=== PATIENT | female | born 1955 | race Caucasian/White ===

== ENCOUNTER 2017-07-14 22:13 | Emergency (ER) | payer OTHER, MEDICARE ==
[~2017-07-14] VITALS: Ht 154.9 cm; Wt 54.4 kg
[2017-07-14 23:11] LABS: Basophils # (auto) 0 uL; Basophils % (auto) 0.8 % (0.0-2.0); Eosinophils # (auto) 0 uL; Eosinophils % (auto) 0.2 % (0.0-7.0); Hematocrit 31.7 % (36.0-46.0); Hemoglobin 10.8 g/dL (12.2-16.2); Lymphocytes # (auto) 0.4 uL; Lymphocytes % (auto) 12.9 % (10.0-50.0); Mean Corpuscular Hemoglobin 28.6 pg (28.0-32.0); Mean Corpuscular Hgb Conc. 34.1 g/dL (32.0-36.0); Monocytes # (auto) 0.4 uL; Monocytes % (auto) 15.9 % (0.0-12.0); Neutrophils # (auto) 1.9 uL; Neutrophils % (auto) 70.2 % (37.0-80.0); Platelet Count (auto) 197 10^3/uL (140-450); Red Blood Cells 3.77 10^6/uL (4.0-5.20); Red Cell Distribution Width 13.5 % (11.8-14.3); White Blood Cell 2.7 10^3/uL (4.4-10.8)
[2017-07-14 23:33] LABS: Alanine Aminotransferase 87 U/L (13-56); Albumin 3.2 g/dL (3.4-5.0); Anion Gap 7 (5-15); Aspartate Aminotransferase 143 U/L (15-37); BUN/Creatinine Ratio 16.1; Blood Urea Nitrogen 20 mg/dL (7-18); Calcium 8.1 mg/dL (8.5-10.1); Carbon Dioxide 25 mmol/L (21-32); Chloride 102 mmol/L (98-107); GFR African American 56 mL/min; GFR Non-African American 46 mL/min; Glucose 108 mg/dL (74-106); Sodium 134 mmol/L (136-145)
[2017-07-14 23:37] LABS: Alkaline Phosphatase 103 U/L (45-117); Bilirubin, Total 0.4 mg/dL (0.2-1.0); Total Protein 6.3 g/dL (6.4-8.2)
[2017-07-15 05:00] VITALS: BP 118/72
== END 2017-07-15 05:40 | disposition home or self-care (01) ==
LOC: ER 22:13 → EDBD 22:13 → ER 07-15 05:40
DX: J06.9 Acute upper respiratory infection, unspecified (principal); R51 Headache; R42 Dizziness and giddiness; I10 Essential (primary) hypertension; Z90.49 Acquired absence of other specified parts of digestive tract; Z85.841 Personal history of malignant neoplasm of brain
CPT/HCPCS: 36415; 70450; 71045; 80053; 83880; 84484; 85025; 87400; 93005; 94761

== ENCOUNTER 2022-08-18 16:31 | Inpatient (IN) | payer OTHER ==
[~2022-08-18] VITALS: Ht 154.9 cm; Wt 50.6 kg
[2022-08-18 18:27] LABS: Albumin 4.6 g/dL (3.4-5.0); Calcium 10.3 mg/dL (8.5-10.1)
[2022-08-18 18:29] LABS: BUN/Creatinine Ratio 12.9
[2022-08-18 18:32] LABS: Bilirubin, Total 0.6 mg/dL (0.2-1.0); Total Protein 8.7 g/dL (6.4-8.2)
[2022-08-18 18:52] LABS: Basophils # (auto) 0 10 ^3/uL (0-0.2); Basophils % (auto) 0.3 % (0.0-2.0); Eosinophils # (auto) 0 10 ^3/uL (0-0.8); Hematocrit 42.1 % (36.0-46.0); Hemoglobin 14.3 g/dL (12.2-16.2); Lymphocytes # (auto) 0.6 10 ^3/uL (0.4-5.4); Mean Corpuscular Hemoglobin 29.1 pg (28.0-32.0); Mean Corpuscular Hgb Conc. 33.9 g/dL (32.0-36.0); Monocytes # (auto) 0.4 10 ^3/uL (0-1.3); Monocytes % (auto) 3.7 % (0.0-12.0); Neutrophils # (auto) 10.1 10 ^3/uL (1.6-8.6); Nucleated Red Blood Cells % 0.1 %; Red Cell Distribution Width 14.1 % (11.8-14.3); White Blood Cell 11.1 10^3/uL (4.4-10.8)
[2022-08-18 18:57] LABS: Urine Bacteria NONE SEEN /hpf (None Seen); Urine Blood Negative /uL (Negative); Urine Budding Yeast MANY /hpf (None Seen); Urine Hyaline Cast FEW /lpf (0 - 2); Urine Mucus FEW (None Seen); Urine Specific Gravity 1.013 (1.001-1.035); Urine WBC <1 /hpf (0 - 5)
[2022-08-18 19:25] LABS: Lactic Acid w/Reflex 2.2 mmol/L (0.4-2.0)
[2022-08-18 19:43] LABS: Potassium 5.6 mmol/L (3.5-5.1)
[2022-08-18] MEDS ORDERED: SODIUM CHLORIDE 0.9% 500 ML IV ONE ×2 (20:00→21:45)
[2022-08-18] MEDS ORDERED: PANTOPRAZOLE 40 MG/10 ML VIAL INJ IV ONE (20:00)
[2022-08-18] MEDS ORDERED: ONDANSETRON HCL 4 MG/2 ML VIAL IV ONE (20:00)
[2022-08-18 22:49] LABS: Hematocrit 42.5 % (36.0-46.0); Hemoglobin 13.9 g/dL (12.2-16.2)
[2022-08-19] MEDS: SODIUM CHLORIDE 0.9% 1,000 ML IV SCH ×2 (04:30→11:05)
[2022-08-19 05:20] LABS: Basophils # (auto) 0 10 ^3/uL (0-0.2); Eosinophils # (auto) 0 10 ^3/uL (0-0.8); Hematocrit 41.6 % (36.0-46.0); Hemoglobin 13.3 g/dL (12.2-16.2); Lymphocytes # (auto) 0.7 10 ^3/uL (0.4-5.4); Lymphocytes % (auto) 6.5 % (10.0-50.0); Mean Corpuscular Hgb Conc. 32.1 g/dL (32.0-36.0); Mean Corpuscular Volume 90.3 fL (80.0-100.0); Monocytes # (auto) 0.6 10 ^3/uL (0-1.3); Monocytes % (auto) 6.1 % (0.0-12.0); Neutrophils % (auto) 87.4 % (37.0-80.0); Nucleated Red Blood Cells % 0.1 %; White Blood Cell 10.3 10^3/uL (4.4-10.8)
[2022-08-19 05:40] LABS: Albumin 3.5 g/dL (3.4-5.0); Calcium 8.9 mg/dL (8.5-10.1); Potassium 3.7 mmol/L (3.5-5.1)
[2022-08-19 05:42] LABS: BUN/Creatinine Ratio 18.7
[2022-08-19 05:44] LABS: Bilirubin, Total 0.6 mg/dL (0.2-1.0); Total Protein 7.4 g/dL (6.4-8.2)
[2022-08-19] MEDS ORDERED: PANTOPRAZOLE 40 MG/10 ML VIAL INJ IV SCH (10:00)
[2022-08-19] MEDS: cefTRIAXone 1GM/50ML D5W 50 ML IV SCH (10:20)
[2022-08-19] MEDS: ONDANSETRON HCL 4 MG/2 ML VIAL IV PRN (14:08)
[2022-08-19 15:45] VITALS: BP 145/90
[2022-08-19 17:08] VITALS: BP 145/90
[2022-08-19 20:00] VITALS: BP 145/85
[2022-08-19] MEDS ORDERED: LEVO25TA6 PO (20:52)
[2022-08-19] MEDS ORDERED: BUSP5TAB51 PO (20:53)
[2022-08-19] MEDS ORDERED: PARO30TA99 PO (20:55)
[2022-08-19] MEDS: PANTOPRAZOLE 40 MG/10 ML VIAL INJ IV SCH (21:25)
[2022-08-19 22:00] VITALS: BP 158/87
[2022-08-19 22:20] VITALS: BP 145/85
[2022-08-20] MEDS: SODIUM CHLORIDE 0.9% 1,000 ML IV SCH ×2 (00:35→14:39)
[2022-08-20 05:00] VITALS: BP 162/89
[2022-08-20 05:37] LABS: Basophils # (auto) 0 10 ^3/uL (0-0.2); Basophils % (auto) 0.5 % (0.0-2.0); Eosinophils # (auto) 0 10 ^3/uL (0-0.8); Eosinophils % (auto) 0.3 % (0.0-7.0); Hematocrit 37.6 % (36.0-46.0); Hemoglobin 12.6 g/dL (12.2-16.2); Lymphocytes # (auto) 0.9 10 ^3/uL (0.4-5.4); Mean Corpuscular Hemoglobin 29.2 pg (28.0-32.0); Mean Corpuscular Hgb Conc. 33.5 g/dL (32.0-36.0); Mean Corpuscular Volume 87.3 fL (80.0-100.0); Monocytes # (auto) 0.6 10 ^3/uL (0-1.3); Monocytes % (auto) 7.2 % (0.0-12.0); Neutrophils # (auto) 6.3 10 ^3/uL (1.6-8.6); Nucleated Red Blood Cells % 0.1 %; Red Cell Distribution Width 14.4 % (11.8-14.3); White Blood Cell 7.8 10^3/uL (4.4-10.8)
[2022-08-20 05:52] LABS: Calcium 9.3 mg/dL (8.5-10.1)
[2022-08-20 05:56] LABS: BUN/Creatinine Ratio 21.9
[2022-08-20 06:09] LABS: Partial Thromboplastin Time 26.8 sec (24.6-33.4)
[2022-08-20 09:00] VITALS: BP 161/98
[2022-08-20] MEDS: PANTOPRAZOLE 40 MG/10 ML VIAL INJ IV SCH ×2 (09:29→21:00)
[2022-08-20] MEDS: cefTRIAXone 1GM/50ML D5W 50 ML IV SCH (09:29)
[2022-08-20] MEDS: ONDANSETRON HCL 4 MG/2 ML VIAL IV PRN ×2 (09:29→17:47)
[2022-08-20] MEDS ORDERED: diphenhdrAMINE HCL 50 MG/1 ML VL ONE (09:55)
[2022-08-20] MEDS ORDERED: LIDOCAINE VISCOUS 2% 15ML UD ONE (09:55)
[2022-08-20] MEDS ORDERED: MIDAZOLAM HCL 2MG/2ML 2ml VIAL (1mg/ml) ONE (09:55)
[2022-08-20] MEDS: fentaNYL CITRATE 100 MCG/2 ML VL ONE ×2 (11:14→11:17)
[2022-08-20 12:10] VITALS: BP 145/78
[2022-08-20] MEDS: SUCRALFATE 1 GM/10 ML ORAL SUSP PO SCH ×3 (14:39→21:00)
[2022-08-20 16:00] VITALS: BP 173/98
[2022-08-20] MEDS ORDERED: hydrALAZINE HCL 20 MG/ML VL IV PRN (17:30)
[2022-08-20] MEDS ORDERED: busPIRone HCL 10 MG TAB PO PRN (17:45)
[2022-08-20 22:00] VITALS: BP 135/78
[2022-08-21 05:00] VITALS: BP 122/75
[2022-08-21] MEDS: SUCRALFATE 1 GM/10 ML ORAL SUSP PO SCH ×2 (06:58→10:48)
[2022-08-21] MEDS ORDERED: LEVOTHYROXINE SODIUM 25 MCG TAB PO SCH (07:00)
[2022-08-21] MEDS: cefTRIAXone 1GM/50ML D5W 50 ML IV SCH (08:21)
[2022-08-21 09:00] VITALS: BP 149/83
[2022-08-21] MEDS ORDERED: LISI20TA28 PO (09:27)
[2022-08-21] MEDS ORDERED: PANT40T PO (09:27)
[2022-08-21] MEDS ORDERED: SUCR1SUS10 PO (09:27)
[2022-08-21] MEDS ORDERED: PARoxetine 20 MG TAB PO SCH (10:00)
[2022-08-21] MEDS: PANTOPRAZOLE 40 MG/10 ML VIAL INJ IV SCH (10:48)
[2022-08-21 13:00] VITALS: BP 137/85
[2022-08-23 14:33] LABS: Hepatitis C Antibody Negative (Negative)
== END 2022-08-21 15:50 | disposition home health service (06) | DRG 378 ==
LOC: ER 16:31 → OVERFLOW 21:49 → CENTRAL 08-19 15:46
PROVIDERS: ADMIT Nurse Practitioner; ATTEND Internal Medicine Geriatric Medicine
PROC: 0DB68ZX Excision of Stomach, Via Natural or Artificial Opening Endoscopic, Diagnostic (ICD-10-PCS; 2022-08-20)
PROC: 0DB48ZX Excision of Esophagogastric Junction, Via Natural or Artificial Opening Endoscopic, Diagnostic (ICD-10-PCS; 2022-08-20)
PROC: 0DB98ZX Excision of Duodenum, Via Natural or Artificial Opening Endoscopic, Diagnostic (ICD-10-PCS; principal; 2022-08-20 10:52)
DX: K29.01 Acute gastritis with bleeding (principal); C74.90 Malignant neoplasm of unspecified part of unspecified adrenal gland; N17.9 Acute kidney failure, unspecified; K29.81 Duodenitis with bleeding; I10 Essential (primary) hypertension; E86.0 Dehydration; C30.0 Malignant neoplasm of nasal cavity; E87.8 Other disorders of electrolyte and fluid balance, not elsewhere classified; Z20.822 Contact with and (suspected) exposure to COVID-19; K44.9 Diaphragmatic hernia without obstruction or gangrene; Z85.858 Personal history of malignant neoplasm of other endocrine glands; Z90.49 Acquired absence of other specified parts of digestive tract; Z92.21 Personal history of antineoplastic chemotherapy
CPT/HCPCS: 36415; 43239; 70450; 71045; 74176; 80048; 80053; 81001; 83605; 83690; 84132; 85014; 85018; 85025; 85610; 85730; 86803; 86850; 86900; 86901; 87340; 87426; 93005; 96361; 96365; 96375; 96376; C9113; G0378; J0696; J2250; J2405

== ENCOUNTER 2023-05-05 19:39 | Inpatient (IN) | payer OTHER ==
[~2023-05-05] VITALS: Ht 152.4 cm; Wt 47.5 kg
[~2023-05-05 19:39] MED LIST: BUSP5TAB51 PO; LEVO25TA6 PO; LISI20TA56 PO; PANT40T PO; PARO30TA99 PO; SUCR1SUS26 PO
[2023-05-05 20:30] VITALS: PULSE 79; RESP 16; O2SAT 94
[2023-05-05] MEDS ORDERED: SODIUM CHLORIDE 0.9% 1,000 ML IVB ONE (21:00)
[2023-05-05] MEDS ORDERED: HYDROmorphone HCL 2 MG/ML VL/or syr IV ONE (21:00)
[2023-05-05] MEDS ORDERED: ONDANSETRON HCL 4 MG/2 ML VIAL IV ONE (21:00)
[2023-05-05] MEDS ORDERED: ACETAMINOPHEN 325 MG TAB PO ONE (21:00)
[2023-05-05] MEDS ORDERED: PANTOPRAZOLE 40 MG/10 ML VIAL INJ IV ONE (21:00)
[2023-05-05 22:07] LABS: Basophils # (auto) 0 10 ^3/uL (0-0.2); Basophils % (auto) 0.5 % (0.0-2.0); Eosinophils # (auto) 0 10 ^3/uL (0-0.8); Eosinophils % (auto) 0.5 % (0.0-7.0); Hemoglobin 12.3 g/dL (12.2-16.2); Lymphocytes # (auto) 0.8 10 ^3/uL (0.4-5.4); Lymphocytes % (auto) 8.2 % (10.0-50.0); Mean Corpuscular Hemoglobin 28.4 pg (28.0-32.0); Mean Corpuscular Hgb Conc. 33.1 g/dL (32.0-36.0); Mean Corpuscular Volume 85.8 fL (80.0-100.0); Monocytes # (auto) 0.5 10 ^3/uL (0-1.3); Neutrophils # (auto) 8.5 10 ^3/uL (1.6-8.6); Neutrophils % (auto) 85.8 % (37.0-80.0); Red Blood Cells 4.31 10^6/uL (4.0-5.20); Red Cell Distribution Width 14.3 % (11.8-14.3); White Blood Cell 9.9 10^3/uL (4.4-10.8)
[2023-05-05 22:25] LABS: INR 1.02 (0.9-1.15); Partial Thromboplastin Time 22.2 SEC (24.5-34.5); Prothrombin Time 10.7 sec (9.3-11.8)
[2023-05-05] MEDS ORDERED: ETOMIDATE (2MG/ML) 20ML VIAL IV ONE (22:30)
[2023-05-05 22:40] LABS: Alanine Aminotransferase 11 U/L (7-40); Albumin 4.4 g/dL (3.2-4.8); Alkaline Phosphatase 58 U/L (46-116); Anion Gap 8 (5-15); Aspartate Aminotransferase 18 U/L (13-40); Blood Alcohol 4.9 mg/dL (<10); Blood Urea Nitrogen 13 mg/dL (9-23); CRP High Sensitivity 0.05 mg/dL (<1.0); Calcium 9.6 mg/dL (8.5-10.1); Carbon Dioxide 27 mmol/L (20-30); Chloride 103 mmol/L (98-107); Creatine Kinase IFCC 50 U/L (34-145); Glucose 116 mg/dL (74-106); Lactic Acid w/Reflex 2.2 mmol/L (0.4-2.0); Potassium 4.4 mmol/L (3.5-5.1); Sodium 138 mmol/L (136-145)
[2023-05-05 22:41] LABS: Bilirubin, Total 0.2 mg/dL (0.2-1.0)
[2023-05-05 22:51] LABS: Erythrocyte Sedimentation Rate 18 mm/hr (0-20)
[2023-05-05 22:54] LABS: Lipase 82 U/L (12-53); Magnesium 1.9 mg/dL (1.6-2.6)
[2023-05-05 23:55] LABS: Urine Bacteria NONE SEEN /hpf (None Seen); Urine Blood Negative /uL (Negative); Urine Clarity Clear (Clear); Urine Protein, UAD Negative (Negative); Urine Specific Gravity 1.009 (1.001-1.035); Urine Urobilinogen Normal (Negative); Urine WBC 4 /hpf (0 - 5)
[2023-05-05 23:59] LABS: Amphetamine Screen, Urine Neg (NEGATIVE); Barbiturate Scree,Urine Neg (NEGATIVE); Benzodiazephine Screen, Urine Neg (NEGATIVE); Cannabinoid Screen, Urine Neg (NEGATIVE); Cocaine Screen, Urine Neg (NEGATIVE); Opiate Scree,Urine Neg (NEGATIVE); Phencyclidine Screen, Urine Neg (NEGATIVE)
[2023-05-06] LABS: Urine Color Straw (Yellow)
[2023-05-06] MEDS ORDERED: LIDOCAINE W/ EPINEPHRINE 1% 20ML VIAL ONE (00:45)
[2023-05-06] MEDS ORDERED: ONDANSETRON HCL 4 MG/2 ML VIAL IV ONE (01:30)
[2023-05-06] MEDS ORDERED: MIDAZOLAM HCL 2MG/2ML 2ml VIAL (1mg/ml) IV ONE ×2 (01:30)
[2023-05-06] MEDS ORDERED: HYDROmorphone HCL 2 MG/ML VL/or syr IV ONE (01:30)
[2023-05-06] MEDS ORDERED: fentaNYL CITRATE 100 MCG/2 ML VL IV ONE (01:45)
[2023-05-06] MEDS ORDERED: ACETAMINOPHEN 325 MG TAB PO PRN (03:00)
[2023-05-06] MEDS ORDERED: ONDANSETRON HCL 4 MG/2 ML VIAL IV PRN (03:00)
[2023-05-06] MEDS ORDERED: HYDROcodone-ACET 5/325MG TAB PO PRN (03:00)
[2023-05-06] MEDS ORDERED: MORPHINE SULFATE INJ 2 MG/ml SYRG IV PRN (03:45)
[2023-05-06] MEDS ORDERED: NITROGLYCERIN 0.4 MG SL TAB SL PRN (03:45)
[2023-05-06] MEDS: D5W/SOD CHLO 0.9% 1,000 ML IV SCH ×2 (04:14→16:20)
[2023-05-06 05:44] LABS: Basophils # (auto) 0 10 ^3/uL (0-0.2); Basophils % (auto) 0.4 % (0.0-2.0); Eosinophils # (auto) 0 10 ^3/uL (0-0.8); Eosinophils % (auto) 0.4 % (0.0-7.0); Hematocrit 35.9 % (36.0-46.0); Hemoglobin 11.4 g/dL (12.2-16.2); Lymphocytes # (auto) 0.8 10 ^3/uL (0.4-5.4); Lymphocytes % (auto) 13.1 % (10.0-50.0); Mean Corpuscular Hemoglobin 28.5 pg (28.0-32.0); Mean Corpuscular Hgb Conc. 31.9 g/dL (32.0-36.0); Mean Corpuscular Volume 89.4 fL (80.0-100.0); Monocytes # (auto) 0.6 10 ^3/uL (0-1.3); Monocytes % (auto) 9.1 % (0.0-12.0); Neutrophils # (auto) 4.9 10 ^3/uL (1.6-8.6); Nucleated Red Blood Cells % 0.1 %; Red Blood Cells 4.02 10^6/uL (4.0-5.20); Red Cell Distribution Width 14.5 % (11.8-14.3); White Blood Cell 6.3 10^3/uL (4.4-10.8)
[2023-05-06 06:07] LABS: Alanine Aminotransferase 35 U/L (7-40); Albumin 3.9 g/dL (3.2-4.8); Alkaline Phosphatase 58 U/L (46-116); Anion Gap 6 (5-15); Aspartate Aminotransferase 73 U/L (13-40); BUN/Creatinine Ratio 9.9 (10.0-20.0); Blood Urea Nitrogen 8 mg/dL (9-23); Calcium 8.4 mg/dL (8.7-10.4); Carbon Dioxide 25 mmol/L (20-30); Chloride 108 mmol/L (98-107); Glucose 92 mg/dL (74-106); Potassium 3.8 mmol/L (3.5-5.1); Sodium 139 mmol/L (136-145)
[2023-05-06 06:08] LABS: Bilirubin, Total 0.4 mg/dL (0.2-1.0); Total Protein 6.1 g/dL (5.7-8.2)
[2023-05-06 08:28] VITALS: PULSE 81; RESP 15; O2SAT 98
[2023-05-06] MEDS: cefTRIAXone 1GM/50ML D5W 50 ML IV SCH (12:02)
[2023-05-06] MEDS: FAMOTIDINE (10MG/ML) 2ML VL IV SCH ×2 (12:02→22:18)
[2023-05-06] MEDS: ENOXAPARIN SOD 40 MG/0.4 ML SYRINGE SC SCH (12:03)
[2023-05-06] MEDS: HYDROmorphone HCL 2 MG/ML VL/or syr IV PRN (18:10)
[2023-05-06 20:00] VITALS: PULSE 93; RESP 14; O2SAT 99
[2023-05-06 22:09] VITALS: PULSE 51; RESP 16; O2SAT 94
[2023-05-06 23:46] VITALS: BP 131/83; PULSE 85; RESP 17; TEMP 98.4; O2SAT 98
[2023-05-07] VITALS (7 sets, daily range): BP systolic 118–182; BP diastolic 79–106; PULSE 75–103; RESP 17–18; TEMP 97.6–99; O2SAT 98–100
[2023-05-07] MEDS: D5W/SOD CHLO 0.9% 1,000 ML IV SCH ×4 (05:47→18:18)
[2023-05-07 06:25] LABS: Basophils # (auto) 0 10 ^3/uL (0-0.2); Eosinophils # (auto) 0.1 10 ^3/uL (0-0.8); Eosinophils % (auto) 2.7 % (0.0-7.0); Hematocrit 30.8 % (36.0-46.0); Hemoglobin 10.4 g/dL (12.2-16.2); Lymphocytes # (auto) 0.6 10 ^3/uL (0.4-5.4); Lymphocytes % (auto) 15.5 % (10.0-50.0); Mean Corpuscular Hemoglobin 29.1 pg (28.0-32.0); Mean Corpuscular Hgb Conc. 33.7 g/dL (32.0-36.0); Mean Corpuscular Volume 86.4 fL (80.0-100.0); Monocytes # (auto) 0.4 10 ^3/uL (0-1.3); Monocytes % (auto) 10.6 % (0.0-12.0); Neutrophils # (auto) 2.5 10 ^3/uL (1.6-8.6); Neutrophils % (auto) 70.2 % (37.0-80.0); Red Blood Cells 3.56 10^6/uL (4.0-5.20); Red Cell Distribution Width 14.2 % (11.8-14.3); White Blood Cell 3.6 10^3/uL (4.4-10.8)
[2023-05-07 07:29] LABS: Albumin 3.4 g/dL (3.2-4.8); Alkaline Phosphatase 60 U/L (46-116); Anion Gap 5 (5-15); Aspartate Aminotransferase 27 U/L (13-40); BUN/Creatinine Ratio 9.5 (10.0-20.0); Blood Urea Nitrogen 8 mg/dL (9-23); Calcium 8.7 mg/dL (8.7-10.4); Carbon Dioxide 26 mmol/L (20-30); Chloride 106 mmol/L (98-107); Glucose 93 mg/dL (74-106); Potassium 3.3 mmol/L (3.5-5.1); Sodium 137 mmol/L (136-145)
[2023-05-07 07:30] LABS: Bilirubin, Total 0.6 mg/dL (0.2-1.0); Total Protein 5.5 g/dL (5.7-8.2)
[2023-05-07 08:11] LABS: Alanine Aminotransferase 28 U/L (7-40)
[2023-05-07] MEDS: cefTRIAXone 1GM/50ML D5W 50 ML IV SCH (08:53)
[2023-05-07] MEDS: hydrALAZINE HCL 20 MG/ML VL IV PRN (08:53)
[2023-05-07] MEDS: FAMOTIDINE (10MG/ML) 2ML VL IV SCH ×2 (10:21→21:30)
[2023-05-07] MEDS: ENOXAPARIN SOD 40 MG/0.4 ML SYRINGE SC SCH (10:21)
[2023-05-08] VITALS (9 sets, daily range): BP systolic 100–169; BP diastolic 74–109; PULSE 81–111; RESP 16–20; TEMP 98.2–98.8; O2SAT 95–100
[2023-05-08] MEDS: hydrALAZINE HCL 20 MG/ML VL IV PRN ×2 (05:15→21:50)
[2023-05-08] MEDS: D5W/SOD CHLO 0.9% 1,000 ML IV SCH (08:30)
[2023-05-08] MEDS: cefTRIAXone 1GM/50ML D5W 50 ML IV SCH (08:41)
[2023-05-08] MEDS: FAMOTIDINE (10MG/ML) 2ML VL IV SCH ×2 (11:12→20:54)
[2023-05-08] MEDS: ENOXAPARIN SOD 40 MG/0.4 ML SYRINGE SC SCH (11:12)
[2023-05-08] MEDS: HYDROmorphone HCL 2 MG/ML VL/or syr IV PRN (20:54)
[2023-05-09] VITALS (10 sets, daily range): BP systolic 118–168; BP diastolic 71–115; PULSE 81–119; RESP 16–17; TEMP 98–98.8; O2SAT 97–100
[2023-05-09] MEDS: FAMOTIDINE (10MG/ML) 2ML VL IV SCH ×2 (09:11→21:31)
[2023-05-09] MEDS: hydrALAZINE HCL 20 MG/ML VL IV PRN (09:20)
[2023-05-09] MEDS: ENOXAPARIN SOD 40 MG/0.4 ML SYRINGE SC SCH (09:21)
[2023-05-09] MEDS: cefTRIAXone 1GM/50ML D5W 50 ML IV SCH (09:21)
[2023-05-09] MEDS: D5W/SOD CHLO 0.9% 1,000 ML IV SCH (12:52)
[2023-05-09] MEDS: HYDROmorphone HCL 2 MG/ML VL/or syr IV PRN (23:50)
[2023-05-10] VITALS (7 sets, daily range): BP systolic 119–154; BP diastolic 63–91; PULSE 81–105; RESP 16–20; TEMP 97.4–98.8; O2SAT 95–100
[2023-05-10] MEDS: D5W/SOD CHLO 0.9% 1,000 ML IV SCH ×3 (00:20→22:30)
[2023-05-10] MEDS ORDERED: POTASSIUM CHL 20 Meq TABLET PO ONE (07:45)
[2023-05-10] MEDS: cefTRIAXone 1GM/50ML D5W 50 ML IV SCH (08:36)
[2023-05-10] MEDS: FAMOTIDINE (10MG/ML) 2ML VL IV SCH ×2 (10:11→21:09)
[2023-05-10] MEDS: ENOXAPARIN SOD 40 MG/0.4 ML SYRINGE SC SCH (10:11)
[2023-05-10] MEDS: DOCUSATE SOD 100 MG CAP PO PRN (21:09)
[2023-05-11] VITALS (7 sets, daily range): BP systolic 129–167; BP diastolic 88–107; PULSE 85–105; RESP 15–18; TEMP 97.6–99.6; O2SAT 98–100
[2023-05-11 05:56] LABS: Basophils # (auto) 0 10 ^3/uL (0-0.2); Basophils % (auto) 1.2 % (0.0-2.0); Eosinophils # (auto) 0.1 10 ^3/uL (0-0.8); Eosinophils % (auto) 4.5 % (0.0-7.0); Hematocrit 30.1 % (36.0-46.0); Hemoglobin 9.9 g/dL (12.2-16.2); Lymphocytes # (auto) 0.6 10 ^3/uL (0.4-5.4); Lymphocytes % (auto) 17.6 % (10.0-50.0); Mean Corpuscular Hemoglobin 28.5 pg (28.0-32.0); Mean Corpuscular Hgb Conc. 32.9 g/dL (32.0-36.0); Mean Corpuscular Volume 86.5 fL (80.0-100.0); Monocytes # (auto) 0.4 10 ^3/uL (0-1.3); Monocytes % (auto) 11.1 % (0.0-12.0); Neutrophils # (auto) 2.1 10 ^3/uL (1.6-8.6); Neutrophils % (auto) 65.6 % (37.0-80.0); Nucleated Red Blood Cells % 0.1 %; Red Blood Cells 3.48 10^6/uL (4.0-5.20); Red Cell Distribution Width 14.4 % (11.8-14.3); White Blood Cell 3.2 10^3/uL (4.4-10.8)
[2023-05-11 06:05] LABS: Chloride 105 mmol/L (98-107); Potassium 3.8 mmol/L (3.5-5.1); Sodium 140 mmol/L (136-145)
[2023-05-11 06:06] LABS: Anion Gap 5 (5-15); Calcium 8.8 mg/dL (8.5-10.1); Carbon Dioxide 30 mmol/L (20-30)
[2023-05-11 06:11] LABS: BUN/Creatinine Ratio 8.3 (10.0-20.0); Blood Urea Nitrogen 7 mg/dL (9-23); Glucose 89 mg/dL (74-106)
[2023-05-11] MEDS ORDERED: LEVOTHYROXINE SODIUM 25 MCG TAB PO ONE (09:30)
[2023-05-11] MEDS: FAMOTIDINE (10MG/ML) 2ML VL IV SCH ×2 (09:58→21:55)
[2023-05-11] MEDS: cefTRIAXone 1GM/50ML D5W 50 ML IV SCH (10:27)
[2023-05-11] MEDS: LISINOPRIL 20 MG TAB PO SCH (10:28)
[2023-05-11] MEDS: PANTOPRAZOLE 40 MG TAB PO SCH (10:28)
[2023-05-11] MEDS: DOCUSATE SOD 100 MG CAP PO PRN ×2 (10:28→21:55)
[2023-05-11] MEDS: PARoxetine 20 MG TAB PO SCH (10:28)
[2023-05-11] MEDS: ENOXAPARIN SOD 40 MG/0.4 ML SYRINGE SC SCH (10:29)
[2023-05-11] MEDS: SUCRALFATE 1 GM TAB PO SCH ×3 (12:30→21:55)
[2023-05-11] MEDS ORDERED: LACTULOSE 20Gm/30ML SOLN PO PRN (17:00)
[2023-05-12 05:00] VITALS: BP 129/81; PULSE 89; RESP 18; TEMP 98.2; O2SAT 100
[2023-05-12] MEDS ORDERED: LEVOTHYROXINE SODIUM 25 MCG TAB PO SCH (07:00)
[2023-05-12 08:00] VITALS: PULSE 100; PULSE 94; RESP 16
[2023-05-12] MEDS: SUCRALFATE 1 GM TAB PO SCH ×2 (08:24→11:30)
[2023-05-12 09:00] VITALS: BP 154/99; PULSE 100; RESP 16; TEMP 97.4; O2SAT 97
[2023-05-12] MEDS: cefTRIAXone 1GM/50ML D5W 50 ML IV SCH (09:08)
[2023-05-12] MEDS: PANTOPRAZOLE 40 MG TAB PO SCH (09:09)
[2023-05-12] MEDS: LISINOPRIL 20 MG TAB PO SCH (09:09)
[2023-05-12] MEDS: PARoxetine 20 MG TAB PO SCH (09:09)
[2023-05-12] MEDS: ENOXAPARIN SOD 40 MG/0.4 ML SYRINGE SC SCH (09:09)
[2023-05-12] MEDS: FAMOTIDINE (10MG/ML) 2ML VL IV SCH (10:00)
[2023-05-12 14:56] VITALS: BP 107/56; PULSE 90; RESP 18; TEMP 98.2; O2SAT 96
== END 2023-05-12 16:10 | disposition home or self-care (01) | DRG 205 ==
LOC: ER 19:39 → EDBD 19:39 → TELE 05-06 03:42 → TELE-EAST 05-06 21:25
PROVIDERS: ADMIT Nurse Practitioner Family; ATTEND Internal Medicine Geriatric Medicine
PROC: 0W9B30Z Drainage of Left Pleural Cavity with Drainage Device, Percutaneous Approach (ICD-10-PCS; principal; 2023-05-08)
DX: S22.32XA Fracture of one rib, left side, initial encounter for closed fracture (principal); J96.01 Acute respiratory failure with hypoxia; S27.0XXA Traumatic pneumothorax, initial encounter; E87.20 Acidosis, unspecified; N39.0 Urinary tract infection, site not specified; R64 Cachexia; J98.11 Atelectasis; I10 Essential (primary) hypertension; W18.39XA Other fall on same level, initial encounter; E78.5 Hyperlipidemia, unspecified; E03.9 Hypothyroidism, unspecified; Z79.899 Other long term (current) drug therapy; Y93.89 Activity, other specified; Y99.8 Other external cause status; Y92.098 Other place in other non-institutional residence as the place of occurrence of the external cause; Z68.20 Body mass index [BMI] 20.0-20.9, adult
CPT/HCPCS: 36415; 70450; 71045; 71046; 71250; 72125; 74176; 80048; 80053; 80307; 80320; 81001; 82550; 83605; 83690; 83735; 83880; 84443; 84484; 85025; 85610; 85652; 85730; 86141; 87040; 87086; 97110; 97116; 97163; 97530; 99291; C9113; G0378; J0696; J2250; J2405; J3490; J7042

== ENCOUNTER 2024-08-13 11:25 | Emergency (ER) | payer OTHER, MEDICAID ==
[~2024-08-13] VITALS: Ht 152.4 cm; Wt 45.0 kg
[~2024-08-13 11:25] MED LIST changes: +PARO-181 PO; -PARO30TA99 PO
[2024-08-13 12:19] LABS: Eosinophils # (auto) 0.1 10 ^3/uL (0-0.8); Lymphocytes # (auto) 0.5 10 ^3/uL (0.4-5.4); Monocytes # (auto) 0.4 10 ^3/uL (0-1.3); Nucleated Red Blood Cells % 0.1 %
[2024-08-13 12:21] LABS: Basophils # (auto) 0.1 10 ^3/uL (0-0.2); Basophils % (auto) 1.2 % (0.0-2.0); Eosinophils % (auto) 2.8 % (0.0-7.0); Hemoglobin 11.9 g/dL (12.2-16.2); Lymphocytes % (auto) 10.1 % (10.0-50.0); Mean Corpuscular Hemoglobin 26.9 pg (28.0-32.0); Mean Corpuscular Volume 81.5 fL (80.0-100.0); Monocytes % (auto) 8.4 % (0.0-12.0); Neutrophils # (auto) 3.8 10 ^3/uL (1.6-8.6); Neutrophils % (auto) 77.5 % (37.0-80.0); Platelet Count (auto) 461 10^3/uL (140-450); Red Blood Cells 4.42 10^6/uL (4.0-5.20); Red Cell Distribution Width 16.4 % (11.8-14.3); White Blood Cell 4.9 10^3/uL (4.4-10.8)
--- NOTE | 2024-08-13 12:26 | ED.PDOC ---
Altered Mental Status HPI Comments 69 y.o female hard of hearing, presents to the ED via EMS s/p syncopal episode today. EMS reports patient is on hospice due to history of brain cancer, state hospice nurse witnessed patient lost consciousness for about 3-4 minutes while showering her in the shower chair. Patient is unable to recall losing conscious but is alert and oriented x 3 now. EMS located patient sitting upright on scene, mention she was hypotensive at 92 systolic with a HR of 110 ST. 350mL IV NS was administrated by EMS which brought pressure up to 102/73. At this time patient denies any pain or symptoms. Patient is DNR status with additional medical history of DM and is on Coumadin, however EMS mention family and hospice nurse on scene were poor historians and were unable to provide full medical, surgical history nor reasoning as to why patient was on Coumadin. Chief Complaint: Syncope Time Seen by MD: 11:45 Primary Care Provider: [facility] Reviewed Notes: Nurses Notes, Watch Commander Notes, Medications, Allergies Allergies: Coded Allergies: NO KNOWN ALLERGIES (Unverified , 09/07/12) Home Meds Active Scripts Lisinopril (Lisinopril) 20 Mg Tab, 1 TAB PO DAILY, #30 TAB 5 Refills Prov:MELI QUIÑONES MD 08/21/22 Sucralfate (CARAFATE SUSP) 1 Gm/10 Ml Ss, 10 ML PO QID for 30 Days, #1200 ML 2 Refills Prov:MELI QUIÑONES MD 08/21/22 Pantoprazole Sodium Sesquihydr (Pantoprazole Sodium) 40 Mg Tab, 40 MG PO BID for 30 Days, #60 TAB 2 Refills Prov:MELI QUIÑONES MD 08/21/22 Reported Medications Paroxetine HCl (Paroxetine Hydrochloride) 30 Mg Tab, 30 MG PO DAILY, TAB 08/19/22 Buspirone Hcl (Buspirone Hcl) 5 Mg Tab, 5 MG PO TID PRN for ANXIETY for 30 Days, MG 08/19/22 Levothyroxine Sodium (Levothyroxine Sodium) 25 Mcg Tab, 75 MCG PO QAM, MCG 08/19/22 Information Source: Patient, Emergency Med Personnel Mode of Arrival: EMS Severity: Moderate Timing: Hours Duration: Since onset Prehospital treatment: IVF Quality: Decreased Alertness Recent: None History of: Diabetes Associated Signs and Symptoms: None Past Medical History PAST MEDICAL HISTORY: Cancer, DM, HTN Surgical History: Cholecystectomy, Unobtainable AERIAL INSTALLER History: No Pertinent AERIAL INSTALLER History Family History Family History: Unknown Social History Smoker: Non-Smoker Alcohol: Denies ETOH Use Drugs: Denies Drug Use Lives In: Home Constitutional: denies: chills, diaphoresis, fatigue, fever, malaise, sweats, weakness, others EENTM: denies: blurred vision, double vision, ear bleeding, ear discharge, ear drainage, ear pain, ear ringing, eye pain, eye redness, hearing loss, mouth pain, mouth swelling, nasal discharge, nose bleeding, nose congestion, nose pain, photophobia, tearing, throat pain, throat swelling, voice changes, others Respiratory: denies: cough, hemoptysis, orthopnea, SOB at rest, shortness of breath, SOB with excertion, stridor, wheezing, others Cardiovascular: reports: syncope; denies: chest pain, dizzy spells, diaphoresis, Dyspnea on exertion, edema, irregular heart beat, left arm pain, lightheadedness, palpitations, PND, others Gastrointestinal: denies: abdomen distended, abdominal pain, blood streaked bowels, constipated, diarrhea, dysphagia, difficulty swallowing, hematemesis, melena, nausea, poor appetite, poor fluid intake, rectal bleeding, rectal pain, vomiting, others Genitourinary: denies: abnormal vagina bleeding, burning, dyspareunia, dysuria, flank pain, frequency, hematuria, incontinence, pain, , vagina discharge, urgency, others Neurological: denies: dizziness, fainting, headache, left sided numbness, left sided weakness, numbness, paresthesia, pre-existing deficit, right sided numbness, right sided weakness, seizure, speech problems, tingling, tremors, weakness, others Musculoskeletal: denies: back pain, gout, joint pain, joint swelling, muscle pain, muscle stiffness, neck pain, others Integumetry: denies: bruises, change in color, change in hair/nails, dryness, laceration, lesions, lumps, rash, wounds, others Allergic/Immunocompromised: denies: Difficulty Healing, Frequent Infections, Hives, Itching, others Hematologic/Lymphatic: denies: anemia, blood clots, easy bleeding, easy bruising, swollen glands, others Endocrine: denies: excessive hunger, excessive sweating, excessive thirst, excessive urination, flushing, intolerance to cold, intolerance to heat, unexplained weight gain, unexplained weight loss, others Psychiatric: denies: anxiety, bipolar disorder, depression, hopeless, panic disorder, schizophrenia, sleepless, suicidal, others All Other Systems: Reviewed and Negative Physical Exam General Appearance: No Apparent Distress HEENT: Other (By mucous membranes) Neck: Full Range of Motion, Non-Tender, Normal Inspection, Supple Respiratory: Lungs Clear, No Accessory Muscle Use, No Respiratory Distress, Normal Breath Sounds Cardiovascular: No Edema, No JVD, Tachycardia Breast Exam: Deferred Gastrointestinal: Non Tender, Soft Genitalia: Deferred Pelvic: Deferred Rectal: Deferred Extremities: Normal inspection, Normal range of motion, Non-tender, No pedal edema Neurologic: Alert (Oriented x4), Other (Moves all extremities. No gross focal deficit.) Cerebellar Function: NOT DONE Reflexes: NOT DONE Skin: Dry, Normal Color, Warm Lymphatic: NOT DONE EKG EKG : Comments Sinus rhythm, rate 94, normal intervals, normal axis, normal QRS, no ST/T changes. Was a procedure done? Was a procedure done?: No Differential Diagnosis (ALOC) Differential Diagnosis: Dehydration, Hypoglycemia, Sepsis, Hypoxemia, Seizure, CVA, Mass Lesion, SAH, Other (Electrolyte imbalance, hypovolemia, orthostasis, among others) Other Differential Diagnosis Hypotension X-Ray, Labs, Meds, VS Vital Signs Date Time Temp Pulse Resp B/P (MAP) Pulse Ox O2 Delivery O2 Flow Rate FiO2 08/13/24 17:24 97.3 88 17 138/95 (109) 99 97.3 08/13/24 11:45 94 08/13/24 11:39 97.5 94 16 102/73 (83) 94 Lab Test 08/13/24 12:59 08/13/24 11:59 Range/Units Troponin I High Sensitivity < 3 L < 3 L </=34 ng/L White Blood Count 4.9 4.4-10.8 10^3/uL Red Blood Count 4.42 4.0-5.20 10^6/uL Hemoglobin 11.9 L 12.2-16.2 g/dL Hematocrit 36.0 36.0-46.0 % Mean Corpuscular Volume 81.5 80.0-100.0 fL Mean Corpuscular Hemoglobin 26.9 L 28.0-32.0 pg Mean Corpuscular Hemoglobin Concent 33.0 32.0-36.0 g/dL Red Cell Distribution Width 16.4 H 11.8-14.3 % Platelet Count 461 H 140-450 10^3/uL Mean Platelet Volume 6.0 L 6.9-10.8 fL Neutrophils (%) (Auto) 77.5 37.0-80.0 % Lymphocytes (%) (Auto) 10.1 10.0-50.0 % Monocytes (%) (Auto) 8.4 0.0-12.0 % Eosinophils (%) (Auto) 2.8 0.0-7.0 % Basophils (%) (Auto) 1.2 0.0-2.0 % Neutrophils # (Auto) 3.8 1.6-8.6 10 ^3/uL Lymphocytes # (Auto) 0.5 0.4-5.4 10 ^3/uL Monocytes # (Auto) 0.4 0-1.3 10 ^3/uL Eosinophils # (Auto) 0.1 0-0.8 10 ^3/uL Basophils # (Auto) 0.1 0-0.2 10 ^3/uL Nucleated Red Blood Cells 0.1 % Sodium Level 129 L 136-145 mmol/L Potassium Level 4.0 3.5-5.1 mmol/L Chloride Level 95 L 98-107 mmol/L Carbon Dioxide Level 28 20-31 mmol/L Anion Gap 6 5-15 Blood Urea Nitrogen 11 9-23 mg/dL Creatinine 1.21 H 0.550-1.02 mg/dL Glomerular Filtration Rate Calc 48 >90 mL/min BUN/Creatinine Ratio 9.1 L 10.0-20.0 Serum Glucose 150 H 74-106 mg/dL Calcium Level 9.4 8.7-10.4 mg/dL Current Medications Medications (Trade) Dose Ordered Sig/Ravin Route Start Time Stop Time Status Last Admin Sodium Chloride 1,000 ml @ 1,000 mls/hr Q1H ONCE IV 08/13/24 12:00 08/13/24 12:59 DC 08/13/24 15:35 Sodium Chloride 1,000 ml @ 1,000 mls/hr Q1H ONCE IV 08/13/24 15:15 08/13/24 16:14 DC 08/13/24 15:47 [facility] [id number] [place] [id number] Ph: [phone] DIAGNOSTIC IMAGING Diagnostic Imaging Report : [id number] Signed PATIENT: TAMMY COLLAZO ACCT: [id number] UNIT: [id number] : 1955 LOC: ER ROOM / BED: / AGE / SEX: 69 / F ADM STATUS: REG ER SERVICE [id number] ORDERING PHYSICIAN: SKY CHU MD PROCEDURE(s): HWOCT - HEAD WITHOUT CONTRAST REASON: syncope, hx olfactory neuroblastoma, 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 All CT scans at this medical facility are performed using dose modulation techniques as appropriate to a performed exam including the following: Automated exposure control was utilized; adjustment of the MA and/or KV according to patient size; and use of iterative reconstruction technique. CT Dose: CTDI volume is 52.17 mGy. Dose-length product is 923.98 mGy*cm FINDINGS: There is a hypodense mass eroding the clivus and adjacent skull base which measures approximately 2.3 x 3.1 cm. There is no evidence of acute intracranial hemorrhage, mass, mass effect midline shift. There is no hydrocephalus or extra-axial fluid collection. Leal-white matter differentiation appears maintained. The calvarium is intact. There is mild mucosal thickening of the right maxillary sinus. There is partial opacification of the left mastoid air cells. The right mastoid air cells are clear. IMPRESSION: 1. No acute intracranial process. 2. Nonspecific hypodense mass eroding the clivus in the adjacent skull base measuring approximately 2.3 x 3.1 cm. Further evaluation with MR brain and sella study with contrast is recommended. HS:Y ATED BY: GALDINO GREGORY MD DICTATED DATE/TIME: 08/13/241228 SIGNED BY: GALDINO GREGORY MD SIGNED DATE/TIME: 08/13/241228 CC: X-Ray, Labs, Meds, VS Comment 69-year-old female with history of hypertension, olfactory neuroblastoma, gastritis, diabetes presenting with syncope . Patient was on hospice and is DNR. Vitals remarkable for temperature 97.5, oxygen saturation 94% on room air Exam remarkable for dry mucous membranes EKGs sinus rhythm, no ST/T changes. CT head 1. No acute intracranial process. 2. Nonspecific hypodense mass eroding the clivus in the adjacent skull base measuring approximately 2.3 x 3.1 cm. Further evaluation with MR brain and sella study with contrast is recommended. CBC remarkable for hemoglobin 11.9, platelets 461, basic metabolic panel remarkable for sodium 129, chloride 95 UA was ordered but not collected. Patient treated with the following in the ED: 2 L 0.9 normal saline IV bolus On re-evaluation, patient was back to her baseline mental status. Vitals were stable. Hospitalization was considered, however patient had rapid improvement of symptoms with treatment in the ED, and I no longer feel hospitalization this necessary. Patient appears stable for close outpatient follow up with her primary doctor. Time of 1ST Reevaluation: 12:20 Reevaluation 1ST: Unchanged Patient Education/Counseling: Diagnosis, Treatment Family Education/Counseling: No Family Present Departure 1 Departure Time of Disposition: 15:12 Impression: Primary Impression: Syncope Qualified Codes: R55 - Syncope and collapse Additional Impression: Electrolyte imbalance Disposition: 01 HOME / SELF CARE / HOMELESS Condition: Stable Additional Instructions: Your blood tests showed a low sodium. We have replaced this in the ER. Follow up with her primary doctor in 1-2 days for re-evaluation. Return to ER for dizziness, fever, pain, or any other concern. Discharged With: Relative Critical Care Note Critical Care Time?: No Stability Stability form required: No Heart Score Heart Score: Heart Score Response (Comments) Value History N/A 0 EKG N/A 0 Age N/A 0 Risk Factors N/A 0 Troponin N/A 0 Total 0 I personally scribed for SKY CHU MD ([email or web address]) on 08/13/24 at 12:26. Electronically submitted by Sandy Estes ([facility]). I personally scribed for SKY CHU MD ([email or web address]) on 08/13/24 at 12:43. Electronically submitted by Sandy Estes ([facility]). I personally scribed for SKY CHU MD ([email or web address]) on 08/13/24 at 14:50. Electronically submitted by Sandy Estes ([facility]). SKY CHU MD Aug 13, 2024 12:26
--- NOTE | 2024-08-13 12:32 | DVH ---
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 All CT scans at this medical facility are performed using dose modulation techniques as appropriate t o a performed exam including the following: Automated exposure control was utilized; adjustment of th e MA and/or KV according to patient size; and use of iterative reconstruction technique. CT Dose: CTDI volume is 52.17 mGy. Dose-length product is 923.98 mGy*cm FINDINGS: There is a hypodense mass eroding the clivus and adjacent skull base which measures approximately 2.3 x 3.1 cm. There is no evidence of acute intracranial hemorrhage, mass, mass effect midline shift. There is no h ydrocephalus or extra-axial fluid collection. Leal-white matter differentiation appears maintained. The calvarium is intact. There is mild mucosal thickening of the right maxillary sinus. There is par tial opacification of the left mastoid air cells. The right mastoid air cells are clear. IMPRESSION: 1. No acute intracranial process. 2. Nonspecific hypodense mass eroding the clivus in the adjacent skull base measuring approximately 2.3 x 3.1 cm. Further evaluation with MR brain and sella study with contrast is recommended. HS:Y
[2024-08-13 12:45] LABS: Anion Gap 6 (5-15); Calcium 9.4 mg/dL (8.7-10.4); Carbon Dioxide 28 mmol/L (20-31)
[2024-08-13 12:46] LABS: Chloride 95 mmol/L (98-107); Sodium 129 mmol/L (136-145)
[2024-08-13 12:50] LABS: BUN/Creatinine Ratio 9.1 (10.0-20.0); Blood Urea Nitrogen 11 mg/dL (9-23)
[2024-08-13 12:56] LABS: Glucose 150 mg/dL (74-106)
--- NOTE | 2024-08-13 14:29 | ECG ---
[facility] Test Date: 2024-08-13 Test Time: 11:45:08 Pat Name: TAMMY COLLAZO Department: ER Room: Gender: F Crawler Tractor Operator: BALDO : 1955 Requested By: SKY DAILEY Order Number: [id number] Reading MD: Measurements Intervals [place] Rate: 94 P: 47 CA: 152 QRS: 59 QRSD: 98 T: 31 QT: 370 QTc: 463 Interpretive Statements Sinus rhythm Please click the below link to view image of tracing.
[2024-08-13] MEDS: SODIUM CHLORIDE 0.9% 1,000 ML IV ONE ×2 (15:35→15:47)
[2024-08-13 21:00] VITALS: BP 120/86; PULSE 100; RESP 18; TEMP 98; O2SAT 97
== END 2024-08-13 21:20 | disposition home or self-care (01) ==
LOC: ER 11:25 → EDBD 11:25 → ER 21:20
DX: R55 Syncope and collapse (principal); E87.8 Other disorders of electrolyte and fluid balance, not elsewhere classified; E11.9 Type 2 diabetes mellitus without complications; Z79.899 Other long term (current) drug therapy; Z90.49 Acquired absence of other specified parts of digestive tract
CPT/HCPCS: 36415; 70450; 80048; 84484; 85025; 93005; 96360; 96361